=== PATIENT | male | born 1980 ===

== ENCOUNTER → 2020-08-13 10:58 | Outpatient (BNVA) | payer OTHER, SELFPAY | PROVIDERS: PCP Internal Medicine; Visit Provider Nurse Practitioner Gerontology | DX: E10.42 Type 1 diabetes mellitus with diabetic polyneuropathy (principal); E10.65 Type 1 diabetes mellitus with hyperglycemia; I10 Essential (primary) hypertension | CPT/HCPCS: 82947; 99212 ==

== ENCOUNTER 2021-06-11 08:37 | Outpatient (REF) | payer OTHER, SELFPAY ==
--- NOTE | ~2021-06-11 | XR_ITS ---
EXAMINATION: XR FOOT, RIGHT CLINICAL INFORMATION: Pain in right toe COMPARISON: None TECHNIQUE: AP, lateral, and oblique views of the right foot. FINDINGS: The bones and soft tissues are normal. No fracture. Alignment is anatomic. Joint spaces are maintained. XR/XR foot RT min 3V IMPRESSION: Normal right foot.
== END 2021-06-11 08:38 | disposition home or self-care (01) ==
LOC: HO.XRAY 08:37
PROVIDERS: PCP Internal Medicine; Visit Provider Emergency Medicine
DX: M79.674 Pain in right toe(s) (principal)
CPT/HCPCS: 73630

== ENCOUNTER 2021-10-10 15:48 | Outpatient (REF) | payer OTHER, SELFPAY ==
--- NOTE | ~2021-10-10 | US_ITS ---
EXAMINATION: US THYROID CLINICAL INFORMATION: Nontoxic single thyroid nodule. COMPARISON: None. TECHNIQUE: Linear transducer grayscale and color Doppler examination with attention to the region of the thyroid. FINDINGS: SIZE: Measurements of the thyroid lobes and nodules are given in sagittal, anteroposterior and transverse dimensions respectively. Right Thyroid Lobe: 6.0 x 1.9 x 1.9 cm, volume 11.0 mL. Parenchyma: The gland echotexture is homogeneous. Thyroid vascularity is normal. Left Thyroid Lobe: 5.2 x 1.7 x 2.1 cm, volume 9.7 mL. Parenchyma: The gland echotexture is homogeneous. Thyroid vascularity is normal. Isthmus: 0.4 cm in maximum AP dimension. Estimated total number of nodules greater than or equal to 1 cm: 1. 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 Location: Left isthmus. Size: 1.4 x 0.7 x 1.6 cm, volume 0.9 mL. Nodule characteristics: Composition: Mixed cystic and solid (1). Echogenicity: Isoechoic (1). Shape: Taller than wide (3). Margins: Smooth (0). Echogenic Foci: None (0). ACR TI-RADS total points: 5 ACR TI-RADS category: 4 2. Location: Right mid. Size: 0.7 x 0.5 x 0.7 cm, volume 0.1 mL. Nodule characteristics: Composition: Solid (2). Echogenicity: Isoechoic (1). Shape: Not taller than wide (0). Margins: Smooth (0). Echogenic Foci: None (0). ACR TI-RADS total points: 3 ACR TI-RADS category: 3 NODES: No lymphadenopathy is seen in the tissue surrounding the thyroid gland. US/US thyroid IMPRESSION: Slightly enlarged left thyroid lobe but homogeneous. There are 2 nodules The left isthmus nodule is borderline by TI-RADS evaluation. Recommend one-year follow-up. The second nodule is subcentimeter and nonsuspicious. ACR TI-RADS RECOMMENDATION REFERENCE: Ultrasound-guided fine-needle aspiration, followup ultrasound, no further follow up. * TR1 (0 point) and TR 2 (2 points): No FNA or follow up * TR3 (3 points): FNA if more than or equal to 2.5 cm in maximum dimension, followup ultrasound in 1, 3 and 5 years if 1.5 to 2.4 cm in maximum dimension. * TR4 (4-6 points): FNA if more than or equal to 1.5 cm in maximum dimension, followup ultrasound in 1, 2, 3 and 5 years if 1 to 1.4 cm in maximum dimension. * TR5 (more than or equal to 7 points): FNA if more than or equal to 1 cm in maximum dimension, followup ultrasound every year for 5 years if 0.5 to 0.9 cm in maximum dimension. * TR3, TR4 or TR5 nodules that are below the size threshold for follow up receive no follow up.
== END 2021-10-10 15:49 | disposition home or self-care (01) ==
LOC: HO.US 15:48
PROVIDERS: Visit Provider Internal Medicine
DX: E04.1 Nontoxic single thyroid nodule (principal)
CPT/HCPCS: 76536

== ENCOUNTER 2022-06-02 11:21 | Emergency (ER) | payer OTHER, SELFPAY ==
--- NOTE | ~2022-06-02 | XR_ITS ---
EXAMINATION: XR CHEST CLINICAL INFORMATION: Chest pain and shortness of breath. COMPARISON: Chest x-ray 03/28/2019 TECHNIQUE: 2 views of the chest were obtained. FINDINGS: Cardiac silhouette is normal in size. The lungs are well aerated. There is no lobar consolidation. No pleural effusion or pneumothorax. No acute osseous abnormality. XR/XR chest 2V IMPRESSION: No acute pulmonary pathology.
[2022-06-02 11:55] VITALS: BP 143/91; PULSE 80; RESP 18; TEMP 36.6; O2SAT 98; BMI 29.8
--- NOTE | 2022-06-02 11:55 | ED.URI ---
HPI - URI/Sore Throat General Chief Complaint: Nausea/Vomiting/Diarrhea <Donna Saunders CNP - Last Filed: 06/02/22 11:58> Stated Complaint: Cough/Back pain/Chest pain <Donna Saunders CNP - Last Filed: 06/02/22 11:58> Time Seen by Provider: 06/02/22 14:04 <Donna Saunders CNP - Last Filed: 06/02/22 11:58> History of Present Illness HPI Narrative: Patient complains of body aches headache cough times 2-3 days, developed nausea vomiting and diarrhea yesterday, as he is vomiting he did not take his insulin this morning, he also has a cough but no chest pain no shortness of breath no abdominal pain <DANIELLE Hernandez - Last Filed: 06/05/22 11:06> Related Data Home Medications: Home Medications Medication Instructions Recorded Confirmed blood-glucose meter #1 ea 08/13/20 08/13/20 insulin glargine 100 unit/mL (3 24 unit subcut BEDTIME 08/13/20 08/13/20 mL) subcutaneous pen lisinopril 5 mg tablet 5 mg PO DAILY 08/13/20 08/13/20 Previous Rx's Medication Instructions Recorded blood sugar diagnostic (FreeStyle #150 ea 08/13/20 Lite Strips) insulin lispro 100 unit/mL 10 unit (0.1 mL) subcut TID #15 mL 10/29/20 subcutaneous pen (Humalog KwikPen (U-100) Insulin) acetaminophen 325 mg capsule 975 mg PO TID PRN fever or pain 06/02/22 #30 caps ondansetron 4 mg disintegrating 4 mg PO Q6H PRN nausea and 06/02/22 tablet vomiting #10 tabs oseltamivir 75 mg capsule (Tamiflu) 75 mg PO Q12H 5 days #10 caps 06/02/22 <Donna Saunders CNP - Last Filed: 06/02/22 11:58> Allergies/Adverse Reactions: Allergies Allergy/AdvReac Type Severity Reaction Status Date / Time No Known Allergies Allergy Unverified 08/13/20 11:44 [No Known Allergies*] <Donna Saunders CNP - Last Filed: 06/02/22 11:58> Review of Systems Review of Systems: Positive for fever body aches fatigue cough nausea vomiting and headache Negatives are no dizziness no weakness no fainting no feeling faint no stiff neck no difficulty breathing or swallowing no sore throat no chest pain no shortness of breath no abdominal pain no diarrhea no dysuria no skin rash <DANIELLE Hernandez - Last Filed: 06/05/22 11:06> Yes all other systems are reviewed and are negative <DANIELLE Hernandez - Last Filed: 06/05/22 11:06> [facility] Past Medical History Source: nursing notes reviewed <DANIELLE Hernandez - Last Filed: 06/05/22 11:06> Medical History: Medical History (Updated 06/03/22 @ 00:02 by Noemi Colin) Diabetes mellitus type 1, uncontrolled Essential hypertension Type 1 diabetes mellitus with diabetic polyneuropathy <Donna Saunders CNP - Last Filed: 06/02/22 11:58> Surgical History: Surgical History History of ear surgery <Donna Saunders CNP - Last Filed: 06/02/22 11:58> Family History Family History: Family History Father Diabetes Mother No problems noted. <Donna Saunders CNP - Last Filed: 06/02/22 11:58> Social History Social History: Social History (Updated 08/13/20 @ 11:30 by Kimberly Astorga [facility]) Household Members: Significant Other Advance Directives: No Advance Directives Information Provided: Yes <Donna Saunders CNP - Last Filed: 06/02/22 11:58> Physical Exam Vital Signs: Vital Signs: Last Vital Signs Temp 97.9 F 06/02/22 11:55 Pulse 80 06/02/22 11:55 Resp 18 06/02/22 11:55 BP 143/91 H 06/02/22 11:55 Pulse Ox 98 06/02/22 11:55 O2 Del Method 06/02/22 11:55 BMI result Body Mass Index 29.8 <Donna Saunders CNP - Last Filed: 06/02/22 11:58> Vital Signs: Last Vital Signs Temp 97.9 F 06/02/22 11:55 Pulse 80 06/02/22 11:55 Resp 18 06/02/22 11:55 BP 143/91 H 06/02/22 11:55 Pulse Ox 98 06/02/22 11:55 O2 Del Method 06/02/22 11:55 BMI result Body Mass Index 29.8 <DANIELLE Hernandez - Last Filed: 06/05/22 11:06> General appearance is no acute distress The eyes anicteric no pallor no redness no discharge The sinuses nontender The pharynx is clear with no redness swelling or exudate, lips are cracked and mucous membranes are dry Neck is supple Chest clear to auscultation full symmetric equal breath sounds Heart no murmur The abdomen soft nontender The extremities full range of motion x4 Skin no rash <DANIELLE Hernandez - Last Filed: 06/05/22 11:06> Course Course Course Narrative: RME: Patient is a 41-year-old male with a Past medical history of diabetes, hypertension who presents emergency department for evaluation of ill symptoms. He states that he has inability to tolerate oral fluids or solids, experiencing Nausea, vomiting, diarrhea, chills, tactile fever, cough, shortness of breath, chest pain. Symptom onset 2 days ago. Significant other is ill with similar symptoms and upper respiratory symptoms. Suspect likely viral infection however will evaluate for ACS/pneumonia given pmhx as risk factors. Plan: POC glucose, labs, EKG, viral testing <Donna Saunders CNP - Last Filed: 06/02/22 11:58> RME: Patient is a 41-year-old male with a Past medical history of diabetes, hypertension who presents emergency department for evaluation of ill symptoms. He states that he has inability to tolerate oral fluids or solids, experiencing Nausea, vomiting, diarrhea, chills, tactile fever, cough, shortness of breath, chest pain. Symptom onset 2 days ago. Significant other is ill with similar symptoms and upper respiratory symptoms. Suspect likely viral infection however will evaluate for ACS/pneumonia given pmhx as risk factors. Plan: POC glucose, labs, EKG, viral testing Patient was hydrated and given nausea medicine and felt much better and was tolerating p.o. and feeling very improved Chest x-ray was negative EKG ordered from triage was a normal sinus rhythm with no acute ischemic changes no acute ST changes Labs showed a glucose of 434, BUN 20, creatinine 1.5, bilirubin 3.5 Anion gap was 17 and bicarb was 25, it is likely that the small bump in creatinine and BUN are due to dehydration and he is advised that in 2 weeks he should follow with his doctor to recheck his bilirubin and renal function The patient had not taken his insulin and is very familiar with his insulin regimen and is going to eat something and go home and apply his normal insulin regime Well-appearing very improve patient is discharged <DANIELLE Hernandez - Last Filed: 06/05/22 11:06> Medications Administered Discontinued Medications Generic Name Dose Route Start Last Admin Trade Name Freq PRN Reason Stop Dose Admin Sodium Chloride 1,000 mls @ 999 mls/hr 06/02/22 14:45 06/02/22 15:12 Ns IVCONT 06/02/22 15:45 999 mls/hr .Q1H1M JOSUÉ Administration Ondansetron HCl 4 mg 06/02/22 14:32 06/02/22 15:13 Ondansetron Hcl 4 Mg/2 Ml Vial IVPUSH 06/02/22 14:33 4 mg ONCE ONE Administration <Donna Saunders CNP - Last Filed: 06/02/22 11:58> Medications Administered Discontinued Medications Generic Name Dose Route Start Last Admin Trade Name Freq PRN Reason Stop Dose Admin Sodium Chloride 1,000 mls @ 999 mls/hr 06/02/22 14:45 06/02/22 15:12 Ns IVCONT 06/02/22 15:45 999 mls/hr .Q1H1M JOSUÉ Administration Ondansetron HCl 4 mg 06/02/22 14:32 06/02/22 15:13 Ondansetron Hcl 4 Mg/2 Ml Vial IVPUSH 06/02/22 14:33 4 mg ONCE ONE Administration <DANIELLE Hernandez - Last Filed: 06/05/22 11:06> Medical Decision Making Lab Data MDM Lab Attestation statement: I reviewed the patient's lab results. <DANIELLE Hernandez - Last Filed: 06/05/22 11:06> Result Diagrams: : 06/02/22 12:32 06/02/22 12:32 <Donna Saunders CNP - Last Filed: 06/02/22 11:58> Labs: Lab Results 06/02/22 06/02/22 06/02/22 Range/Units 12:00 12:32 12:32 WBC 4.7 L (4.8-10.8) X10*3/uL RBC 5.16 (4.60-5.80) X10*6/uL Hgb 15.9 (14.0-18.0) g/dl Hct 47.1 (42.0-52.0) % MCV 91.3 (80.0-98.0) fL MCH 30.8 (27.0-33.0) pg MCHC 33.8 (31.0-36.0) g/dl RDW 12.5 (11.0-16.0) % Plt Count 278 (160-400) X10*3/uL MPV 8.5 L (9.4-12.4) fL Immature Gran % (Auto) 0.2 (0.0-0.4) % Neut % (Auto) 65.3 (45-73) % Lymph % (Auto) 20.6 (20-40) % [place] % (Auto) 13.1 H (2-11) % Eos % (Auto) 0.2 (0-4) % Baso % (Auto) 0.6 (0-2) % Lymph # (Auto) 1.0 L (1.2-4.9) X10*3/uL [place] # (Auto) 0.6 (0.1-1.2) X10*3/uL Eos # (Auto) 0.0 (0.0-0.4) X10*3/uL Baso # (Auto) 0.0 (0.0-0.2) X10*3/uL Abs Immat Gran (auto) 0.01 (0.00-0.03) X10*3/uL Absolute Neuts (auto) 3.1 (2.0-8.3) x10*3/uL Absolute Nucleated RBC 0.000 (0.0-0.012) X10*3/uL Nucleated RBC % (auto) 0.0 (0.0-0.2) /100WBC Sodium 135 (135-145) mmol/L Potassium 4.6 (3.3-5.1) mmol/L Chloride 98 (96-108) mmol/L Carbon Dioxide 25 (22-29) mmol/L Anion Gap 17 (12-20) BUN 20 H (9-16) mg/dL Creatinine 1.50 H (0.5-1.4) mg/dL Estim Creat Clear Calc 77.6 Estimated GFR 51 POC Glucose 402 H* (60-115) mg/dL Random Glucose 434 H* (60-115) mg/dL Calcium 9.2 (8.4-10.2) mg/dL Total Bilirubin 3.5 H (0.0-1.0) mg/dL AST 23 (5-37) U/L ALT 27 (0-40) U/L Alkaline Phosphatase 97 (39-117) U/L Troponin I High Sens (<3.5-35.0) ng/L Total Protein 6.8 (6.5-8.0) g/dL Albumin 4.3 (3.5-5.0) g/dL Lipase 17 (8-78) U/L Acetone, Qual (Negative) COVID-19 (CHRISTINE) (Negative) COVID-19 Clin Com Influenza Type A (JIN) (Negative) Influenza Type B (JIN) (Negative) Influenza A & B Note 06/02/22 06/02/22 06/02/22 Range/Units 12:32 12:32 12:32 WBC (4.8-10.8) X10*3/uL RBC (4.60-5.80) X10*6/uL Hgb (14.0-18.0) g/dl Hct (42.0-52.0) % MCV (80.0-98.0) fL MCH (27.0-33.0) pg MCHC (31.0-36.0) g/dl RDW (11.0-16.0) % Plt Count (160-400) X10*3/uL MPV (9.4-12.4) fL Immature Gran % (Auto) (0.0-0.4) % Neut % (Auto) (45-73) % Lymph % (Auto) (20-40) % [place] % (Auto) (2-11) % Eos % (Auto) (0-4) % Baso % (Auto) (0-2) % Lymph # (Auto) (1.2-4.9) X10*3/uL [place] # (Auto) (0.1-1.2) X10*3/uL Eos # (Auto) (0.0-0.4) X10*3/uL Baso # (Auto) (0.0-0.2) X10*3/uL Abs Immat Gran (auto) (0.00-0.03) X10*3/uL Absolute Neuts (auto) (2.0-8.3) x10*3/uL Absolute Nucleated RBC (0.0-0.012) X10*3/uL Nucleated RBC % (auto) (0.0-0.2) /100WBC Sodium (135-145) mmol/L Potassium (3.3-5.1) mmol/L Chloride (96-108) mmol/L Carbon Dioxide (22-29) mmol/L Anion Gap (12-20) BUN (9-16) mg/dL Creatinine (0.5-1.4) mg/dL Estim Creat Clear Calc Estimated GFR POC Glucose (60-115) mg/dL Random Glucose (60-115) mg/dL Calcium (8.4-10.2) mg/dL Total Bilirubin (0.0-1.0) mg/dL AST (5-37) U/L ALT (0-40) U/L Alkaline Phosphatase (39-117) U/L Troponin I High Sens 3.4 (<3.5-35.0) ng/L Total Protein (6.5-8.0) g/dL Albumin (3.5-5.0) g/dL Lipase (8-78) U/L Acetone, Qual (Negative) COVID-19 (CHRISTINE) Negative (Negative) COVID-19 Clin Com See Note Influenza Type A (JIN) Positive A (Negative) Influenza Type B (JIN) Negative (Negative) Influenza A & B Note See Note 06/02/22 Range/Units 12:32 WBC (4.8-10.8) X10*3/uL RBC (4.60-5.80) X10*6/uL Hgb (14.0-18.0) g/dl Hct (42.0-52.0) % MCV (80.0-98.0) fL MCH (27.0-33.0) pg MCHC (31.0-36.0) g/dl RDW (11.0-16.0) % Plt Count (160-400) X10*3/uL MPV (9.4-12.4) fL Immature Gran % (Auto) (0.0-0.4) % Neut % (Auto) (45-73) % Lymph % (Auto) (20-40) % [place] % (Auto) (2-11) % Eos % (Auto) (0-4) % Baso % (Auto) (0-2) % Lymph # (Auto) (1.2-4.9) X10*3/uL [place] # (Auto) (0.1-1.2) X10*3/uL Eos # (Auto) (0.0-0.4) X10*3/uL Baso # (Auto) (0.0-0.2) X10*3/uL Abs Immat Gran (auto) (0.00-0.03) X10*3/uL Absolute Neuts (auto) (2.0-8.3) x10*3/uL Absolute Nucleated RBC (0.0-0.012) X10*3/uL Nucleated RBC % (auto) (0.0-0.2) /100WBC Sodium (135-145) mmol/L Potassium (3.3-5.1) mmol/L Chloride (96-108) mmol/L Carbon Dioxide (22-29) mmol/L Anion Gap (12-20) BUN (9-16) mg/dL Creatinine (0.5-1.4) mg/dL Estim Creat Clear Calc Estimated GFR POC Glucose (60-115) mg/dL Random Glucose (60-115) mg/dL Calcium (8.4-10.2) mg/dL Total Bilirubin (0.0-1.0) mg/dL AST (5-37) U/L ALT (0-40) U/L Alkaline Phosphatase (39-117) U/L Troponin I High Sens (<3.5-35.0) ng/L Total Protein (6.5-8.0) g/dL Albumin (3.5-5.0) g/dL Lipase (8-78) U/L Acetone, Qual Small H (Negative) COVID-19 (CHRISTINE) (Negative) COVID-19 Clin Com Influenza Type A (JIN) (Negative) Influenza Type B (JIN) (Negative) Influenza A & B Note <Donna Saunders, PLANT [employer]ER - Last Filed: 06/02/22 11:58> Lab Results 06/02/22 06/02/22 06/02/22 Range/Units 12:00 12:32 12:32 WBC 4.7 L (4.8-10.8) X10*3/uL RBC 5.16 (4.60-5.80) X10*6/uL Hgb 15.9 (14.0-18.0) g/dl Hct 47.1 (42.0-52.0) % MCV 91.3 (80.0-98.0) fL MCH 30.8 (27.0-33.0) pg MCHC 33.8 (31.0-36.0) g/dl RDW 12.5 (11.0-16.0) % Plt Count 278 (160-400) X10*3/uL MPV 8.5 L (9.4-12.4) fL Immature Gran % (Auto) 0.2 (0.0-0.4) % Neut % (Auto) 65.3 (45-73) % Lymph % (Auto) 20.6 (20-40) % [place] % (Auto) 13.1 H (2-11) % Eos % (Auto) 0.2 (0-4) % Baso % (Auto) 0.6 (0-2) % Lymph # (Auto) 1.0 L (1.2-4.9) X10*3/uL [place] # (Auto) 0.6 (0.1-1.2) X10*3/uL Eos # (Auto) 0.0 (0.0-0.4) X10*3/uL Baso # (Auto) 0.0 (0.0-0.2) X10*3/uL Abs Immat Gran (auto) 0.01 (0.00-0.03) X10*3/uL Absolute Neuts (auto) 3.1 (2.0-8.3) x10*3/uL Absolute Nucleated RBC 0.000 (0.0-0.012) X10*3/uL Nucleated RBC % (auto) 0.0 (0.0-0.2) /100WBC Sodium 135 (135-145) mmol/L Potassium 4.6 (3.3-5.1) mmol/L Chloride 98 (96-108) mmol/L Carbon Dioxide 25 (22-29) mmol/L Anion Gap 17 (12-20) BUN 20 H (9-16) mg/dL Creatinine 1.50 H (0.5-1.4) mg/dL Estim Creat Clear Calc 77.6 Estimated GFR 51 POC Glucose 402 H* (60-115) mg/dL Random Glucose 434 H* (60-115) mg/dL Calcium 9.2 (8.4-10.2) mg/dL Total Bilirubin 3.5 H (0.0-1.0) mg/dL AST 23 (5-37) U/L ALT 27 (0-40) U/L Alkaline Phosphatase 97 (39-117) U/L Troponin I High Sens (<3.5-35.0) ng/L Total Protein 6.8 (6.5-8.0) g/dL Albumin 4.3 (3.5-5.0) g/dL Lipase 17 (8-78) U/L Acetone, Qual (Negative) COVID-19 (CHRISTINE) (Negative) COVID-19 Clin Com Influenza Type A (JIN) (Negative) Influenza Type B (JIN) (Negative) Influenza A & B Note 06/02/22 06/02/22 06/02/22 Range/Units 12:32 12:32 12:32 WBC (4.8-10.8) X10*3/uL RBC (4.60-5.80) X10*6/uL Hgb (14.0-18.0) g/dl Hct (42.0-52.0) % MCV (80.0-98.0) fL MCH (27.0-33.0) pg MCHC (31.0-36.0) g/dl RDW (11.0-16.0) % Plt Count (160-400) X10*3/uL MPV (9.4-12.4) fL Immature Gran % (Auto) (0.0-0.4) % Neut % (Auto) (45-73) % Lymph % (Auto) (20-40) % [place] % (Auto) (2-11) % Eos % (Auto) (0-4) % Baso % (Auto) (0-2) % Lymph # (Auto) (1.2-4.9) X10*3/uL [place] # (Auto) (0.1-1.2) X10*3/uL Eos # (Auto) (0.0-0.4) X10*3/uL Baso # (Auto) (0.0-0.2) X10*3/uL Abs Immat Gran (auto) (0.00-0.03) X10*3/uL Absolute Neuts (auto) (2.0-8.3) x10*3/uL Absolute Nucleated RBC (0.0-0.012) X10*3/uL Nucleated RBC % (auto) (0.0-0.2) /100WBC Sodium (135-145) mmol/L Potassium (3.3-5.1) mmol/L Chloride (96-108) mmol/L Carbon Dioxide (22-29) mmol/L Anion Gap (12-20) BUN (9-16) mg/dL Creatinine (0.5-1.4) mg/dL Estim Creat Clear Calc Estimated GFR POC Glucose (60-115) mg/dL Random Glucose (60-115) mg/dL Calcium (8.4-10.2) mg/dL Total Bilirubin (0.0-1.0) mg/dL AST (5-37) U/L ALT (0-40) U/L Alkaline Phosphatase (39-117) U/L Troponin I High Sens 3.4 (<3.5-35.0) ng/L Total Protein (6.5-8.0) g/dL Albumin (3.5-5.0) g/dL Lipase (8-78) U/L Acetone, Qual (Negative) COVID-19 (CHRISTINE) Negative (Negative) COVID-19 Clin Com See Note Influenza Type A (JIN) Positive A (Negative) Influenza Type B (JIN) Negative (Negative) Influenza A & B Note See Note 06/02/22 Range/Units 12:32 WBC (4.8-10.8) X10*3/uL RBC (4.60-5.80) X10*6/uL Hgb (14.0-18.0) g/dl Hct (42.0-52.0) % MCV (80.0-98.0) fL MCH (27.0-33.0) pg MCHC (31.0-36.0) g/dl RDW (11.0-16.0) % Plt Count (160-400) X10*3/uL MPV (9.4-12.4) fL Immature Gran % (Auto) (0.0-0.4) % Neut % (Auto) (45-73) % Lymph % (Auto) (20-40) % [place] % (Auto) (2-11) % Eos % (Auto) (0-4) % Baso % (Auto) (0-2) % Lymph # (Auto) (1.2-4.9) X10*3/uL [place] # (Auto) (0.1-1.2) X10*3/uL Eos # (Auto) (0.0-0.4) X10*3/uL Baso # (Auto) (0.0-0.2) X10*3/uL Abs Immat Gran (auto) (0.00-0.03) X10*3/uL Absolute Neuts (auto) (2.0-8.3) x10*3/uL Absolute Nucleated RBC (0.0-0.012) X10*3/uL Nucleated RBC % (auto) (0.0-0.2) /100WBC Sodium (135-145) mmol/L Potassium (3.3-5.1) mmol/L Chloride (96-108) mmol/L Carbon Dioxide (22-29) mmol/L Anion Gap (12-20) BUN (9-16) mg/dL Creatinine (0.5-1.4) mg/dL Estim Creat Clear Calc Estimated GFR POC Glucose (60-115) mg/dL Random Glucose (60-115) mg/dL Calcium (8.4-10.2) mg/dL Total Bilirubin (0.0-1.0) mg/dL AST (5-37) U/L ALT (0-40) U/L Alkaline Phosphatase (39-117) U/L Troponin I High Sens (<3.5-35.0) ng/L Total Protein (6.5-8.0) g/dL Albumin (3.5-5.0) g/dL Lipase (8-78) U/L Acetone, Qual Small H (Negative) COVID-19 (CHRISTINE) (Negative) COVID-19 Clin Com Influenza Type A (JIN) (Negative) Influenza Type B (JIN) (Negative) Influenza A & B Note <DANIELLE Hernandez - Last Filed: 06/05/22 11:06> Discharge Plan Discharge Clinical Impression: Influenza <Donna Saunders CNP - Last Filed: 06/02/22 11:58> Patient Disposition: Home, Self-Care <Donna Saunders CNP - Last Filed: 06/02/22 11:58> Additional Instructions: Testing today showed you had the flu Labs showed mild dehydration with creatinine of 1.5 In a week or 2 it is a good idea to check with your doctor and get the kidney function re checked, as well as albumin which was elevated We gave a L of fluid and nausea medicine which improved you We are giving a prescription for Tamiflu for the flu This medication relieves symptoms somewhat but does not cure the flu, so if it causes any side effects or stomach upset you do not have to take Return to the ER any time for difficulty breathing, dehydration any worse condition or any concerns Resume your normal diabetes management when you go home, make sure you eat some food <Donna Saunders CNP - Last Filed: 06/02/22 11:58> Prescriptions: New ondansetron 4 mg tablet,disintegrating 4 mg PO Q6H PRN (Reason: nausea and vomiting) Qty: 10 0RF oseltamivir [Tamiflu] 75 mg capsule 75 mg PO Q12H 5 Days Qty: 10 0RF acetaminophen 325 mg capsule 975 mg PO TID PRN (Reason: fever or pain) Qty: 30 0RF No Action insulin lispro [Humalog KwikPen Insulin] 100 unit/mL insulin pen 10 unit subcut TID Qty: 15 1RF Lantus Solostar U-100 Insulin 100 unit/mL (3 mL) insulin pen 24 unit subcut BEDTIME lisinopril 5 mg tablet 5 mg PO DAILY (DME) blood-glucose meter Kit See Rx Instructions Not Applicable BID Qty: 1 Rx Instructions: As directed (DME) FreeStyle Lite Strips Strip See Rx Instructions .ROUTE .MEDSUPPLY Qty: 150 11RF Rx Instructions: As directed five times a day <Donna Saunders CNP - Last Filed: 06/02/22 11:58> Stand Alone Forms: Work/School Release <Donna Saunders CNP - Last Filed: 06/02/22 11:58> Interventions: ED Discharge Assessment Last Done: 06/02/22 17:41 <Donna Saunders CNP - Last Filed: 06/02/22 11:58> Discharge Date/Time: 06/02/22 17:41 <Donna Saunders CNP - Last Filed: 06/02/22 11:58>
--- NOTE | 2022-06-02 11:57 | ECG_ITS ---
Test Reason : cp Blood Pressure : / mmHG Vent. Rate : 089 BPM Atrial Rate : 089 BPM P-R Int : 138 ms QRS Dur : 086 ms QT Int : 350 ms P-R-T Axes : 066 080 033 degrees QTc Int : 425 ms Normal sinus rhythm Normal ECG When compared with ECG of 28-MAR-2019 10:25, No significant change was found Referred By: Donna Saunders Electronically Signed By:Jl Finley
[2022-06-02 12:40] LABS: Basophils Percent Auto 0.6 % (0-2); Eosinophils Percent Auto 0.2 % (0-4); Hematocrit 47.1 % (42.0-52.0); Hemoglobin 15.9 g/dl (14.0-18.0); Imm Gran Abs Auto 0.01 X10*3/uL (0.00-0.03); Imm Gran Pct Auto 0.2 % (0.0-0.4); Lymphocytes Percent Auto 20.6 % (20-40); MANUAL DIFF FLAG NO; Mean Corpuscular HGB Conc 33.8 g/dl (31.0-36.0); Mean Corpuscular Hemoglobin 30.8 pg (27.0-33.0); Mean Corpuscular Volume 91.3 fL (80.0-98.0); Mean Platelet Volume 8.5 fL (9.4-12.4); Monocytes Absolute Auto 0.6 X10*3/uL (0.1-1.2); Monocytes Percent Auto 13.1 % (2-11); Neutrophils Absolute Auto 3.1 x10*3/uL (2.0-8.3); Neutrophils Percent Auto 65.3 % (45-73); Platelet Count 278 X10*3/uL (160-400); Red Blood Count 5.16 X10*6/uL (4.60-5.80); Red Cell Distribution Width 12.5 % (11.0-16.0); White Blood Count 4.7 X10*3/uL (4.8-10.8)
[2022-06-02 12:57] LABS: COVID-19 Test Negative (Negative); IDNOW Serial# 9DB6401D
[2022-06-02 13:00] LABS: Acetone, serum QL Small (Negative)
[2022-06-02 13:02] LABS: Alanine Aminotransferase 27 U/L (0-40); Albumin Level 4.3 g/dL (3.5-5.0); Alkaline Phosphatase 97 U/L (39-117); Anion Gap 17 (12-20); Aspartate Amino Transferase 23 U/L (5-37); Blood Urea Nitrogen 20 mg/dL (9-16); Calcium 9.2 mg/dL (8.4-10.2); Carbon Dioxide 25 mmol/L (22-29); Chloride 98 mmol/L (96-108); Creatinine Clr Calc Pharmacy 77.6; Estimated Glomerular Filt Rate 51; Glucose Random 434 mg/dL (60-115); Lipase 17 U/L (8-78); Potassium 4.6 mmol/L (3.3-5.1); Sodium 135 mmol/L (135-145); Total Protein 6.8 g/dL (6.5-8.0)
[2022-06-02 13:12] LABS: IDNOW Serial# BCCEAD1C; Influenza A Positive (Negative); Influenza B2 Negative (Negative)
[2022-06-02 13:23] LABS: Bilirubin Total 3.5 mg/dL (0.0-1.0)
[2022-06-02 13:57] LABS: Troponin-I High Sensitivity 3.4 ng/L (<3.5-35.0)
[2022-06-02] MEDS: 0.9 % Sodium Chloride 1,000 ML 999 ML IVCONT (15:12)
[2022-06-02] MEDS: ondansetron HCL 4 MG/2 ML VIAL IVPUSH (15:13)
[2022-06-03 07:57] LABS: Glucose, Whole Blood 402 mg/dL (60-115)
== END 2022-06-02 17:41 | disposition home or self-care (01) ==
PROVIDERS: Nurse Practitioner Family; Emergency Provider Emergency Medicine Emergency Medical Services; PCP Internal Medicine
DX: J11.1 Influenza due to unidentified influenza virus with other respiratory manifestations (principal); Z20.822 Contact with and (suspected) exposure to COVID-19; E10.9 Type 1 diabetes mellitus without complications; I10 Essential (primary) hypertension; Z79.4 Long term (current) use of insulin
CPT/HCPCS: 36415; 71046; 80053; 82009; 82947; 83690; 84484; 85025; 87502; 87635; 93005; 96374; 99283; 99284; J2405

== ENCOUNTER 2022-09-15 07:23 | Emergency (ER) | payer OTHER, SELFPAY ==
[2022-09-15 07:34] VITALS: BP 148/81; PULSE 83; RESP 20; TEMP 36.7; O2SAT 99; BMI 29.5
--- NOTE | 2022-09-15 07:46 | PC.NURSE ---
pt arrived to ED ambulatory, complaints of N/V/D x1 day. Denies pain unless going to the bathroom. Pt reports he is a diabetic, POC ordered, reported he has not taken insulin since yesterday. No PO tolerance since yesterday.
--- NOTE | 2022-09-15 07:47 | MHC.EDTECH ---
POC 443 RN Khushbu aware
[2022-09-15 07:52] LABS: Glucose, Whole Blood 443 mg/dL (60-115)
--- NOTE | 2022-09-15 08:10 | ED.GENADULT ---
HPI - General Adult General Chief complaint: Abdominal Pain Stated complaint: HBS/Vomiting/Abd pain Time Seen by Provider: 09/15/22 08:10 Source: patient Mode of arrival: ambulatory Limitations: no limitations History of Present Illness HPI narrative: Patient is a 42 year old assigned male at with a history of type 1 diabetes presenting to the emergency department today with nausea and vomiting. Patient states that he was feeling fine and his sugars were fine and then he began to have nausea and vomiting. Patient states that since the nausea and vomiting started, his sugars have been harder to control. Patient denies any dizziness, lightheadedness, abdominal pain, fever, chills, blurry vision, double vision, loss of vision, chest pain, difficulty breathing, shortness of breath, back pain, night sweats, pain with urination, increased urinary frequency, increased urinary urgency, blood in his urine or stool, syncope or a near syncopal episode, recent trauma or falls, bowel incontinence, bladder incontinence, bowel retention, bladder retention, or any other complaints at this time. Onset (ago): day(s) Severity: mild Severity scale (1-10): 2 Relieving factors: none Exacerbating factors: none Associated symptoms: nausea/vomiting Treatments prior to arrival: none Related Data Home Medications Medication Instructions Recorded Confirmed blood-glucose meter #1 ea 08/13/20 08/13/20 insulin glargine 100 unit/mL (3 24 unit subcut BEDTIME 08/13/20 08/13/20 mL) subcutaneous pen lisinopril 5 mg tablet 5 mg PO DAILY 08/13/20 08/13/20 Previous Rx's Medication Instructions Recorded blood sugar diagnostic (FreeStyle #150 ea 08/13/20 Lite Strips) insulin lispro 100 unit/mL 10 unit (0.1 mL) subcut TID #15 mL 10/29/20 subcutaneous pen (Humalog KwikPen (U-100) Insulin) acetaminophen 325 mg capsule 975 mg PO TID PRN fever or pain 06/02/22 #30 caps ondansetron 4 mg disintegrating 4 mg PO Q6H PRN nausea and 06/02/22 tablet vomiting #10 tabs oseltamivir 75 mg capsule (Tamiflu) 75 mg PO Q12H 5 days #10 caps 06/02/22 ondansetron 4 mg disintegrating 4 mg PO Q8H 3 days #9 tabs 09/15/22 tablet Allergies Allergy/AdvReac Type Severity Reaction Status Date / Time No Known Allergies Allergy Verified 09/15/22 07:38 [No Known Allergies*] Review of Systems Constitutional: Constitutional: Reports no additional constitutional complaints, Denies chills, Denies fever(s) and Denies night sweats Eyes: Eyes: Reports no additional eye complaints, Denies blurry vision, Denies change in vision, Denies diplopia, Denies eye discharge, Denies loss of vision and Denies eye pain ENT: Denies dizziness Cardiovascular: Cardiovascular: Reports no additional cardiovascular complaints, Denies chest pain, Denies lightheadedness, Denies Loss of Consciousness and Denies dyspnea Respiratory: Respiratory: Reports no additional respiratory complaints and Denies dyspnea Gastrointestinal: Gastrointestinal: Reports no additional gastrointestinal complaints, Denies abdominal pain, Denies melena, Denies hematochezia, Denies change in bowel habits, Denies change in stool character, Reports nausea and Reports vomiting Genitourinary: Genitourinary: Reports no additional male genitourinary complaints, Denies hematuria, Denies oliguria, Denies difficulty urinating, Denies dysuria, Denies urinary frequency, Denies urinary hesitancy, Denies urinary incontinence and Denies urinary urgency Musculoskeletal: Musculoskeletal: Reports no additional musculoskeletal complaints, Denies numbness and Denies tingling Neurologic: Denies dizziness, Denies loss of vision, Denies numbness and Denies tingling Psychiatric: Psychiatric: Reports no additional psychiatric complaints Endocrine: Endocrine: Reports no additional endocrine complaints Hematologic/Lymphatic: Hematologic/Lymphatic: Reports no additional hematologic/lymphatic complaints Allergic/Immunologic: Allergic/Immunologic: Reports no additional allergic/immunologic complaints [facility] Past Medical History Attestation statement: The following information was validated with the patient. Source: old records reviewed and nursing notes reviewed Medical History Diabetes mellitus type 1, uncontrolled Essential hypertension Type 1 diabetes mellitus with diabetic polyneuropathy Surgical History History of ear surgery Family History Family History Father Diabetes Mother No problems noted. Social History Social History Household Members: Significant Other Alcohol intake: never Smoked in Last 30 Days: No Use of substances other than those prescribed or required for medical reasons: No Advance Directives: No Advance Directives Information Provided: Yes Physical Exam ED Vital Signs: Vital Signs - 24 hr 09/15/22 07:34 Temperature 98.1 F Pulse Rate 83 Respiratory Rate 20 Blood Pressure 148/81 H Pulse Oximetry 99 Oxygen Delivery Method Room Air BMI result Body Mass Index 29.5 Const General: cooperative, no acute distress, alert and awake Nutritional Appearance: well nourished Orientation/consciousness: patient oriented x3 Limitations: no limitations HENMT Head: Yes normal to inspection and Yes atraumatic Ears: hearing grossly normal bilaterally and external ears normal General nose exam: Normal external nose present, no nasal discharge noted and no epistaxis Face and sinus: Yes normal facial exam, No abrasion and No laceration Mouth: Normal oral and palatal mucosa present, no drooling and no muffled voice Eyes General: appearance normal, both eyes and all related structures Periorbital: periorbital findings normal Eyelids: Yes eyelids normal Conjunctivae: conjunctivae normal Pupils: Equal, round and reactive pupils present EOM: EOMs intact bilaterally Neck Neck: Yes normal visual inspection, Yes full ROM and Yes no lymphadenopathy Chest Chest palpation & inspection: normal inspection of the chest Resp Effort & Inspection: normal respiratory effort and able to speak in complete sentences Auscultation: clear to auscultation bilaterally Cardio Rate: regular rate Rhythm: regular rhythm GI Inspection: Yes normal to inspection Palpation (GI): Soft to palpation, not firm, nontender and no guarding Neuro General: patient oriented x3 and moves all extremities Cranial nerves: Yes Equal, round and reactive pupils present Cognition (Neuro): normal cognition Motor exam (neuro): 5/5 motor strength present throughout Sensory Exam: Normal double simultaneous stimulation for sensation Coordination: [id number] test normal Extrem General: Yes normal to inspection, Yes full ROM and Yes capillary refill normal Psych Appearance: grossly normal Mental Status: mental status grossly normal Affect: normal affect Attitude: cooperative Thought process: Normal thought process present Thought content: Normal thought content present Insight: Good insight present (Psych) Medications Administered Discontinued Medications Generic Name Dose Route Start Last Admin Trade Name Freq PRN Reason Stop Dose Admin Sodium Chloride 1,000 mls @ 999 mls/hr 09/15/22 08:15 09/15/22 09:15 Ns IV 09/15/22 09:15 Infused .Q1H1M JOSUÉ Infusion Ondansetron HCl 4 mg 09/15/22 08:10 09/15/22 08:20 Ondansetron Hcl 4 Mg/2 Ml Vial IVPUSH 09/15/22 08:11 4 mg ONCE ONE Administration Medical Decision Making Medical Decision Making [facility] Narrative: Patient is a 42 year old assigned male at with a history of type 1 diabetes presenting to the emergency department today with nausea and vomiting. Patient's physical exam was unremarkable. Patient's blood work showed an elevated BS of 491 but was otherwise unremarkable including a normal anion gap. Patient's urine showed no acute process. I explained my physical exam findings as well as all test results to the patient. I answered all questions asked by the patient. Patient received IV fluids and anti-emetics which he stated helped his symptoms significantly. I stressed the importance of the patient taking his medication as prescribed. I stressed the importance of the patient following up with his primary care provider. I stressed the importance of the patient returning to the emergency department immediately if his symptoms were to worsen or if he were to develop any dizziness, shortness of breath, difficulty breathing, chest pain, blurry vision, loss of vision, nausea, vomiting, abdominal pain, fever, chills, back pain, or any other complaints. Patient verbalized agreement and understanding with this treatment plan and discharge. Differential Diagnosis Differential Diagnoses: The differential diagnosis associated with the presentation includes gastroenteritis, nausea, vomiting Lab Data MDM Lab Attestation statement: I reviewed the patient's lab results. 09/15/22 08:20 09/15/22 08:20 Labs: Lab Results 09/15/22 09/15/22 09/15/22 Range/Units 07:47 08:14 08:20 WBC 5.4 (4.8-10.8) X10*3/uL RBC 4.79 (4.60-5.80) X10*6/uL Hgb 14.8 (14.0-18.0) g/dl Hct 43.5 (42.0-52.0) % MCV 90.8 (80.0-98.0) fL MCH 30.9 (27.0-33.0) pg MCHC 34.0 (31.0-36.0) g/dl RDW 12.4 (11.0-16.0) % Plt Count 266 (160-400) X10*3/uL MPV 9.0 L (9.4-12.4) fL Immature Gran % (Auto) 0.2 (0.0-0.4) % Neut % (Auto) 57.9 (45-73) % Lymph % (Auto) 26.0 (20-40) % [place] % (Auto) 9.5 (2-11) % Eos % (Auto) 6.0 H (0-4) % Baso % (Auto) 0.4 (0-2) % Lymph # (Auto) 1.4 (1.2-4.9) X10*3/uL [place] # (Auto) 0.5 (0.1-1.2) X10*3/uL Eos # (Auto) 0.3 (0.0-0.4) X10*3/uL Baso # (Auto) 0.0 (0.0-0.2) X10*3/uL Abs Immat Gran (auto) 0.01 (0.00-0.03) X10*3/uL Absolute Neuts (auto) 3.1 (2.0-8.3) x10*3/uL Absolute Nucleated RBC 0.000 (0.0-0.012) X10*3/uL Nucleated RBC % (auto) 0.0 (0.0-0.2) /100WBC VBG pH (7.32-7.43) VBG pCO2 mmHg VBG pO2 mmHg VBG HCO3 (22-26) mmol/L VBG O2 Saturation % VBG Base Excess mmol/L Sodium (135-145) mmol/L Potassium (3.3-5.1) mmol/L Chloride (96-108) mmol/L Carbon Dioxide (22-29) mmol/L Anion Gap (12-20) BUN (9-16) mg/dL Creatinine (0.5-1.4) mg/dL Estim Creat Clear Calc Estimated GFR POC Glucose 443 H* (60-115) mg/dL Random Glucose (60-115) mg/dL Calcium (8.4-10.2) mg/dL Magnesium (1.6-2.6) mg/dL Total Bilirubin (0.0-1.0) mg/dL AST (5-37) U/L ALT (0-40) U/L Alkaline Phosphatase (39-117) U/L Ammonia (13-55) umol/L Total Protein (6.5-8.0) g/dL Albumin (3.5-5.0) g/dL Urine Color Urine Appearance Urine pH (5.0-9.0) Ur Specific [place] (1.005-1.025) Urine Protein (Neg-Trace) mg/dL Urine Glucose (UA) (Negative) mg/dL Urine Ketones (Negative) mg/dL Urine Blood (Negative) Urine Nitrite (Negative) Ur Leukocyte Esterase (Negative) Urine RBC (0-2) /HPF Urine WBC (0-5) /HPF Ur Squamous Epith Cells (0-2) /HPF Urine Bacteria (None Seen) Hyaline Casts (0-2) /LPF COVID-19 (CHRISTINE) Negative (Negative) COVID-19 Clin Com See Note 09/15/22 09/15/22 09/15/22 Range/Units 08:20 08:32 08:38 WBC (4.8-10.8) X10*3/uL RBC (4.60-5.80) X10*6/uL Hgb (14.0-18.0) g/dl Hct (42.0-52.0) % MCV (80.0-98.0) fL MCH (27.0-33.0) pg MCHC (31.0-36.0) g/dl RDW (11.0-16.0) % Plt Count (160-400) X10*3/uL MPV (9.4-12.4) fL Immature Gran % (Auto) (0.0-0.4) % Neut % (Auto) (45-73) % Lymph % (Auto) (20-40) % [place] % (Auto) (2-11) % Eos % (Auto) (0-4) % Baso % (Auto) (0-2) % Lymph # (Auto) (1.2-4.9) X10*3/uL [place] # (Auto) (0.1-1.2) X10*3/uL Eos # (Auto) (0.0-0.4) X10*3/uL Baso # (Auto) (0.0-0.2) X10*3/uL Abs Immat Gran (auto) (0.00-0.03) X10*3/uL Absolute Neuts (auto) (2.0-8.3) x10*3/uL Absolute Nucleated RBC (0.0-0.012) X10*3/uL Nucleated RBC % (auto) (0.0-0.2) /100WBC VBG pH 7.29 L (7.32-7.43) VBG pCO2 47 mmHg VBG pO2 37 mmHg VBG HCO3 23 (22-26) mmol/L VBG O2 Saturation 56.0 % VBG Base Excess -3.6 mmol/L Sodium 134 L (135-145) mmol/L Potassium 4.4 (3.3-5.1) mmol/L Chloride 103 (96-108) mmol/L Carbon Dioxide 20 L (22-29) mmol/L Anion Gap 15 (12-20) BUN 12 (9-16) mg/dL Creatinine 1.23 (0.5-1.4) mg/dL Estim Creat Clear Calc 93.3 Estimated GFR > 60 POC Glucose (60-115) mg/dL Random Glucose 491 H* (60-115) mg/dL Calcium 8.4 D (8.4-10.2) mg/dL Magnesium 1.6 (1.6-2.6) mg/dL Total Bilirubin 0.5 (0.0-1.0) mg/dL AST 19 (5-37) U/L ALT 18 (0-40) U/L Alkaline Phosphatase 83 (39-117) U/L Ammonia 35 (13-55) umol/L Total Protein 5.3 L (6.5-8.0) g/dL Albumin 3.4 L (3.5-5.0) g/dL Urine Color Urine Appearance Urine pH (5.0-9.0) Ur Specific [place] (1.005-1.025) Urine Protein (Neg-Trace) mg/dL Urine Glucose (UA) (Negative) mg/dL Urine Ketones (Negative) mg/dL Urine Blood (Negative) Urine Nitrite (Negative) Ur Leukocyte Esterase (Negative) Urine RBC (0-2) /HPF Urine WBC (0-5) /HPF Ur Squamous Epith Cells (0-2) /HPF Urine Bacteria (None Seen) Hyaline Casts (0-2) /LPF COVID-19 (CHRISTINE) (Negative) COVID-19 Clin Com 09/15/22 Range/Units 09:22 WBC (4.8-10.8) X10*3/uL RBC (4.60-5.80) X10*6/uL Hgb (14.0-18.0) g/dl Hct (42.0-52.0) % MCV (80.0-98.0) fL MCH (27.0-33.0) pg MCHC (31.0-36.0) g/dl RDW (11.0-16.0) % Plt Count (160-400) X10*3/uL MPV (9.4-12.4) fL Immature Gran % (Auto) (0.0-0.4) % Neut % (Auto) (45-73) % Lymph % (Auto) (20-40) % [place] % (Auto) (2-11) % Eos % (Auto) (0-4) % Baso % (Auto) (0-2) % Lymph # (Auto) (1.2-4.9) X10*3/uL [place] # (Auto) (0.1-1.2) X10*3/uL Eos # (Auto) (0.0-0.4) X10*3/uL Baso # (Auto) (0.0-0.2) X10*3/uL Abs Immat Gran (auto) (0.00-0.03) X10*3/uL Absolute Neuts (auto) (2.0-8.3) x10*3/uL Absolute Nucleated RBC (0.0-0.012) X10*3/uL Nucleated RBC % (auto) (0.0-0.2) /100WBC VBG pH (7.32-7.43) VBG pCO2 mmHg VBG pO2 mmHg VBG HCO3 (22-26) mmol/L VBG O2 Saturation % VBG Base Excess mmol/L Sodium (135-145) mmol/L Potassium (3.3-5.1) mmol/L Chloride (96-108) mmol/L Carbon Dioxide (22-29) mmol/L Anion Gap (12-20) BUN (9-16) mg/dL Creatinine (0.5-1.4) mg/dL Estim Creat Clear Calc Estimated GFR POC Glucose (60-115) mg/dL Random Glucose (60-115) mg/dL Calcium (8.4-10.2) mg/dL Magnesium (1.6-2.6) mg/dL Total Bilirubin (0.0-1.0) mg/dL AST (5-37) U/L ALT (0-40) U/L Alkaline Phosphatase (39-117) U/L Ammonia (13-55) umol/L Total Protein (6.5-8.0) g/dL Albumin (3.5-5.0) g/dL Urine Color Yellow Urine Appearance Clear Urine pH 5.5 (5.0-9.0) Ur Specific [place] >= 1.030 H (1.005-1.025) Urine Protein Negative (Neg-Trace) mg/dL Urine Glucose (UA) >=1000 H (Negative) mg/dL Urine Ketones 15 (Negative) mg/dL Urine Blood Negative (Negative) Urine Nitrite Negative (Negative) Ur Leukocyte Esterase Negative (Negative) Urine RBC 0-2 (0-2) /HPF Urine WBC 0-5 (0-5) /HPF Ur Squamous Epith Cells 0-2 (0-2) /HPF Urine Bacteria None Seen (None Seen) Hyaline Casts 0-2 (0-2) /LPF COVID-19 (CHRISTINE) (Negative) COVID-19 Clin Com Chronic Conditions Patient?s care impacted by: Diabetes Discharge Plan Discharge Clinical Impression: Nausea & vomiting Patient Disposition: Home, Self-Care Instructions: Acute Nausea and Vomiting (ED) Additional Instructions: Take your insulin as directed. Follow up with your primary care provider. Return to the emergency department immediately if your symptoms worsen or if you develop any dizziness, shortness of breath, difficulty breathing, chest pain, blurry vision, loss of vision, nausea, vomiting, abdominal pain, fever, chills, back pain, or any other complaints. Prescriptions: New ondansetron 4 mg tablet,disintegrating 4 mg PO Q8H 3 Days Qty: 9 0RF No Action insulin lispro [Humalog KwikPen Insulin] 100 unit/mL insulin pen 10 unit subcut TID Qty: 15 1RF ondansetron 4 mg tablet,disintegrating 4 mg PO Q6H PRN (Reason: nausea and vomiting) Qty: 10 0RF oseltamivir [Tamiflu] 75 mg capsule 75 mg PO Q12H 5 Days Qty: 10 0RF acetaminophen 325 mg capsule 975 mg PO TID PRN (Reason: fever or pain) Qty: 30 0RF Lantus Solostar U-100 Insulin 100 unit/mL (3 mL) insulin pen 24 unit subcut BEDTIME lisinopril 5 mg tablet 5 mg PO DAILY (DME) blood-glucose meter Kit See Rx Instructions Not Applicable BID Qty: 1 Rx Instructions: As directed (DME) FreeStyle Lite Strips Strip See Rx Instructions .ROUTE .MEDSUPPLY Qty: 150 11RF Rx Instructions: As directed five times a day Referrals: Michael Bangura MD [Primary Care Provider] - Stand Alone Forms: Work/School Release Interventions: ED Discharge Assessment Last Done: 09/15/22 10:00 Discharge Date/Time: 09/15/22 10:00 Print Language: French
[2022-09-15] MEDS: ondansetron HCL 4 MG/2 ML VIAL IVPUSH (08:20)
[2022-09-15 08:26] LABS: MANUAL DIFF FLAG NO
[2022-09-15] MEDS: 0.9 % Sodium Chloride 1,000 ML 999 ML IV (08:26)
[2022-09-15 08:29] LABS: Basophils Percent Auto 0.4 % (0-2); Eosinophils Absolute Auto 0.3 X10*3/uL (0.0-0.4); Hematocrit 43.5 % (42.0-52.0); Hemoglobin 14.8 g/dl (14.0-18.0); Imm Gran Abs Auto 0.01 X10*3/uL (0.00-0.03); Imm Gran Pct Auto 0.2 % (0.0-0.4); Lymphocytes Absolute Auto 1.4 X10*3/uL (1.2-4.9); Mean Corpuscular Hemoglobin 30.9 pg (27.0-33.0); Mean Corpuscular Volume 90.8 fL (80.0-98.0); Monocytes Absolute Auto 0.5 X10*3/uL (0.1-1.2); Monocytes Percent Auto 9.5 % (2-11); Neutrophils Absolute Auto 3.1 x10*3/uL (2.0-8.3); Neutrophils Percent Auto 57.9 % (45-73); Platelet Count 266 X10*3/uL (160-400); Red Blood Count 4.79 X10*6/uL (4.60-5.80); Red Cell Distribution Width 12.4 % (11.0-16.0); White Blood Count 5.4 X10*3/uL (4.8-10.8)
[2022-09-15 08:33] LABS: COVID-19 Test Negative (Negative); IDNOW Serial# 6674DD1D
[2022-09-15 08:45] LABS: VBG Base Excess -3.6 mmol/L; VBG HCO3 23 mmol/L (22-26); VBG pCO2 47 mmHg; VBG pH 7.29 (7.32-7.43); VBG pO2 37 mmHg
[2022-09-15 08:47] LABS: Venous Blood Gas Refer to POC result
[2022-09-15 08:50] LABS: Alanine Aminotransferase 18 U/L (0-40); Albumin Level 3.4 g/dL (3.5-5.0); Alkaline Phosphatase 83 U/L (39-117); Anion Gap 15 (12-20); Aspartate Amino Transferase 19 U/L (5-37); Bilirubin Total 0.5 mg/dL (0.0-1.0); Blood Urea Nitrogen 12 mg/dL (9-16); Calcium 8.4 mg/dL (8.4-10.2); Carbon Dioxide 20 mmol/L (22-29); Chloride 103 mmol/L (96-108); Creatinine Clr Calc Pharmacy 93.3; Estimated Glomerular Filt Rate > 60; Glucose Random 491 mg/dL (60-115); Magnesium 1.6 mg/dL (1.6-2.6); Potassium 4.4 mmol/L (3.3-5.1); Sodium 134 mmol/L (135-145); Total Protein 5.3 g/dL (6.5-8.0)
[2022-09-15 08:56] LABS: Ammonia 35 umol/L (13-55)
[2022-09-15 09:30] LABS: Appearance Urine Clear; Color Urine Yellow; Glucose Urine UA >=1000 mg/dL (Negative); Leukocyte Esterase Urine Negative (Negative); Nitrite Urine Negative (Negative); PH 5.5 (5.0-9.0); Specific Gravity - Urine >= 1.030 (1.005-1.025); UMIC TRIGGER UACC YES; Urine Blood Negative (Negative); Urine Ketones 15 mg/dL (Negative); Urine Protein Negative (Neg-Trace)
[2022-09-15 09:36] LABS: Bacteria Urine None Seen (None Seen); Hyaline Casts Urine 0-2 /LPF (0-2); RBC Urine 0-2 /HPF (0-2); Squamous Epithelial Cell Urine 0-2 /HPF (0-2); WBC Urine 0-5 /HPF (0-5)
== END 2022-09-15 10:00 | disposition home or self-care (01) ==
PROVIDERS: Physician Assistant Medical; Emergency Provider Emergency Medicine Emergency Medical Services; PCP Internal Medicine
DX: R11.2 Nausea with vomiting, unspecified (principal); E10.9 Type 1 diabetes mellitus without complications; I10 Essential (primary) hypertension; Z79.4 Long term (current) use of insulin; Z20.822 Contact with and (suspected) exposure to COVID-19
CPT/HCPCS: 36415; 80053; 81001; 82140; 82803; 82947; 83735; 85025; 87635; 96361; 96374; 99284; 99285; J2405

== ENCOUNTER 2023-01-05 12:39 | Outpatient (REF) | payer OTHER, SELFPAY ==
--- NOTE | ~2023-01-05 | US_ITS ---
EXAMINATION: US THYROID CLINICAL INFORMATION: Thyroid nodule. COMPARISON: Ultrasound thyroid 10/10/2021. TECHNIQUE: Linear transducer grayscale and color Doppler examination with attention to the region of the thyroid. FINDINGS: SIZE: Measurements of the thyroid lobes and nodules are given in sagittal, anteroposterior and transverse dimensions respectively. Right Thyroid Lobe: 5.9 x 1.9 x 1.8 cm, volume 10.7 mL. Previously 6.0 x 1.9 x 1.9 cm, volume 11.0 mL. Parenchyma: The gland echotexture is homogeneous. Thyroid vascularity is normal. Left Thyroid Lobe: 4.9 x 1.4 x 1.5 cm, volume 5.3 mL. Previously 5.2 x 1.7 x 2.1 cm, volume 9.7 mL. Parenchyma: The gland echotexture is homogeneous. Thyroid vascularity is normal. Isthmus: 0.45 cm in maximum AP dimension. Previously 0.40 cm. Estimated total number of nodules greater than or equal to 1 cm: 1. Electrical Laboratory Technician nodules are described as follows: 1. Location: Right mid. Size: 0.7 x 0.4 x 0.7 cm, volume 0.10 mL. Previously: 0.7 x 0.5 x 0.7 cm, volume 0.10 mL. Nodule characteristics: Composition: Solid (2). Echogenicity: Hypoechoic (2). Shape: Not taller than wide (0). Margins: Smooth (0). Echogenic Foci: None (0). ACR TI-RADS total points: 4 Previous: 5 ACR TI-RADS category: 4 Previous: 4 Significant change in size (>/= 20% in 2 dimensions and minimal increase of 2 mm or 50% or greater increase in volume): No Change in features: No Change in ACR TI-RADS risk category: Yes 2. Location: Right mid/medial. Size: 0.4 x 0.2 x 0.5 cm, volume 0.02 mL. Previously: New since the previous study. Nodule characteristics: Composition: Cystic(0). ACR TI-RADS total points: 0 ACR TI-RADS category: 1 3. Location: Left isthmus. Size: 1.4 x 0.7 x 1.7 cm, volume 0.87 mL. Previously: 1.4 x 0.7 x 1.6 cm, volume 0.90 mL. Nodule characteristics: Composition: Solid/almost completely solid (2). Echogenicity: Isoechoic (1). Shape: Not taller than wide (0). Margins: Smooth (0). Echogenic Foci: None (0). ACR TI-RADS total points: 3 Previous: 3 ACR TI-RADS category: 3 Previous: 3 Significant change in size (>/= 20% in 2 dimensions and minimal increase of 2 mm or 50% or greater increase in volume): No Change in features: No Change in ACR TI-RADS risk category: No NODES: No lymphadenopathy is seen in the tissue surrounding the thyroid gland. US/US thyroid IMPRESSION: 1. Unchanged 0.7 cm right mid gland TR 4 nodule, not meeting size criteria for further evaluation. 2. Unchanged 1.7 cm TR 3 left isthmic nodule, follow-up ultrasound in 3 years is recommended for reevaluation. 3. No new suspicious thyroid nodules. ACR TI-RADS RECOMMENDATION REFERENCE: Ultrasound-guided fine-needle aspiration, follow up ultrasound, no further followup. * TR1 (0 point) and TR2 (2 points): No FNA or followup * TR3 (3 points): FNA if more than or equal to 2.5 cm in maximum dimension, follow up ultrasound in 1, 3 and 5 years if 1.5 to 2.4 cm in maximum dimension. * TR4 (4-6 points): FNA if more than or equal to 1.5 cm in maximum dimension, follow up ultrasound in 1, 2, 3 and 5 years if 1 to 1.4 cm in maximum dimension. * TR5 (more than or equal to 7 points): FNA if more than or equal to 1 cm in maximum dimension, follow up ultrasound every year for 5 years if 0.5 to 0.9 cm in maximum dimension. * TR3, TR4 or TR5 nodules that are below the size threshold for follow up receive no followup.
== END 2023-01-05 12:40 | disposition home or self-care (01) ==
LOC: HO.US 12:39
PROVIDERS: PCP Internal Medicine; Visit Provider Student in an Organized Health Care Education/Training Program
DX: E04.1 Nontoxic single thyroid nodule (principal)
CPT/HCPCS: 76536

== ENCOUNTER 2023-03-10 09:55 | Outpatient (AMB) | payer OTHER, SELFPAY ==
[2023-03-10 09:57] VITALS: BP 134/86; PULSE 59; BMI 30.5
--- NOTE | 2023-03-10 09:57 | A.OFFVIS_ITS ---
Intake Vital Signs 03/10/23 09:57 Height 6 ft Weight 224 lb 13.944 oz BMI 30.5 BP 134/86 Blood Pressure Location Lt brachial Position Sitting Pulse 59 Pulse Source Pulse Oximeter Intake Visit Reasons: DM / [place]al[place]/LVM Intake Note: Patient presents today to follow up on Type [address] Mendoza patient. Patient receives DME supplies through: Last Diabetic Eye exam: 02/2022 Last Podiatry Visit: None Random Glucose: 185mg/dl HgA1C:8.7% Instructional Technology Facilitator Required: No Accompanied by: Self / Same As Patient Allergies No Known Allergies [No Known Allergies*] Allergy (Verified 03/10/23 10:03) HPI HPI Comments History of Present Illness Details Patient is 42-year-old man with DM type 1 diagnosed in 2012, . Patient was last seen 08/13/2020 by Terri Mendoza NP.. Past medical history: Diabetes type 1, hypertension Micro and macrovascular complications: + retinopathy, + neuropathy, Diabetes medications: Lantus 24 units, Humalog 10 units prior to meals. Symptoms reported: + numbness, tingling, cramping in lower extremities Hypoglycemia: denies Hyperglycemia: denies urinary frequency, denies nocturia, denies polydypsia Blood glucose monitoring: No meter today Exercise: continues to play basketball/baseball and at work is active moving and lifting things all day. Eye Exam: last yr. Needs to schedule an appt [facility] Medical History Diabetes mellitus type 1, uncontrolled Essential hypertension Type 1 diabetes mellitus with diabetic polyneuropathy Surgical History History of ear surgery Family History Father Diabetes Mother No problems noted. Social History Household Members: Significant Other Alcohol intake: never Physical Exam Vital Signs: Last Vital Signs Pulse 59 03/10/23 09:57 BP 134/86 03/10/23 09:57 BMI result Body Mass Index 30.5 Absence of Cushingoid features. Absence of acromegalic features. Neck exam reveals nl size thyroid about 15 gms. No thyroid nodules palpable. No carotid bruits present. Lungs CTA. Heart S1 S2, Reg R/R. No M/R/ G. Skin exam reveals absence of vitiligo or acanthosis nigricans. Abdominal exam reveals Soft NT/ND with NA BS. No organomegaly present. Neck Other: . Extrem Other: Visual exam of foot performed. No ulcerations or open lesions. No onchomycosis, no callouses.Pulses 2 + distally Sensation intact to monofilament exam. Vibratory sensation sensed is intact with 128 Hz tuning fork Results AMB Hemoglobin A1c AMB Hemoglobin A1c 8.7 % Last Edit by Dulce Astudillo on 03/10/23 10:16 Results Reviewed Results Reviewed: 03/10/23 10:07 Glucose, Whole Blood Routine Laboratory Last Values Glucose (Clinic) 185 mg/dL (60-115) H 03/10/23 10:07 Assessment & Plan Assessment & Plan (1) Type 1 diabetes mellitus with diabetic polyneuropathy: Code(s): E10.42 - Type 1 diabetes mellitus with diabetic polyneuropathy Plan: This is a 42-year-old male with a history of type 1 diabetes being treated with basal-bolus insulin with poor glycemic control and known microvascular complications namely retinopathy and neuropathy.. Plan is to have the patient check his point cares pre and post meals. I will try to start the patient on sensor and I prescribed a Dexcom G7. Will send patient a assistant health educator and battery engineer. Will check lipid profile and microalbumin to creatinine ratio. Went over with patient correlation of poor glycemic control with development and progression of complications Orders: Orders Microalbumin, Random (w Creat) Today E10.42 - Type 1 diabetes mellitus with diabetic polyneuropathy Lipid Panel Today E10.42 - Type 1 diabetes mellitus with diabetic polyneuropathy AMB Hemoglobin A1c Today E10.42 - Type 1 diabetes mellitus with diabetic polyneuropathy Referrals Diabetes Education Referral E10.42 - Type 1 diabetes mellitus with diabetic polyneuropathy Nutrition/Dietitian Referral E10.42 - Type 1 diabetes mellitus with diabetic polyneuropathy Medications: New blood-glucose sensor (Dexcom G7 Sensor device) As directed change every 10 days 3 ea 5RF Coding Level of Care Code Est Pt Level 4 (77978) Diagnoses Type 1 diabetes mellitus with diabetic polyneuropathy E10.42
[2023-03-10 10:10] LABS: Glucose, Whole Blood 185 mg/dL (60-115)
== END 2023-03-10 10:31 | disposition home or self-care (01) ==
PROVIDERS: PCP Internal Medicine; Visit Provider Internal Medicine Endocrinology, Diabetes & Metabolism
DX: E10.42 Type 1 diabetes mellitus with diabetic polyneuropathy (principal)
CPT/HCPCS: 99214

== ENCOUNTER → 2023-03-10 09:55 | Outpatient (BNVA) | payer OTHER, SELFPAY | PROVIDERS: PCP Internal Medicine; Visit Provider Internal Medicine Endocrinology, Diabetes & Metabolism | DX: E10.42 Type 1 diabetes mellitus with diabetic polyneuropathy (principal); I10 Essential (primary) hypertension | CPT/HCPCS: 82947; 83036; 99212 ==

== ENCOUNTER 2023-08-20 08:18 | Outpatient (REF) | payer MEDICAID, SELFPAY ==
[2023-08-20 12:04] LABS: Creatinine Urine 186.26 mg/dL; Microalbum/Creatinine Ratio Ur 3.2 ug/mg cr (<30)
[2023-08-20 12:42] LABS: Cholesterol 134 mg/dL (<200); HDL Cholesterol 60 mg/dL (>40); LDL Cholesterol Calculated 67 mg/dL (<100); Triglycerides 35 mg/dL (<150)
== END 2023-08-20 08:19 | disposition home or self-care (01) ==
LOC: HO.HHCL 08:18
PROVIDERS: Visit Provider Internal Medicine Endocrinology, Diabetes & Metabolism
DX: E10.42 Type 1 diabetes mellitus with diabetic polyneuropathy (principal)
CPT/HCPCS: 36415; 80061; 82043; 82570

== ENCOUNTER 2023-10-22 09:00 | Outpatient (REF) | payer OTHER, SELFPAY ==
[2023-10-22 12:44] LABS: Alanine Aminotransferase 14 U/L (0-40); Albumin Level 3.7 g/dL (3.5-5.0); Alkaline Phosphatase 75 U/L (39-117); Anion Gap 11 (12-20); Aspartate Amino Transferase 14 U/L (5-37); Bilirubin Total 0.5 mg/dL (0.0-1.0); Blood Urea Nitrogen 11 mg/dL (9-16); Calcium 8.9 mg/dL (8.4-10.2); Carbon Dioxide 27 mmol/L (22-29); Chloride 109 mmol/L (96-108); Estimated Glomerular Filt Rate > 60; Potassium 4.2 mmol/L (3.3-5.1); Sodium 143 mmol/L (135-145)
[2023-10-22 13:04] LABS: Glucose Random 56 mg/dL (60-115)
== END 2023-10-22 09:01 | disposition home or self-care (01) ==
LOC: HO.HHCL 09:00
PROVIDERS: Visit Provider Student in an Organized Health Care Education/Training Program
DX: E10.40 Type 1 diabetes mellitus with diabetic neuropathy, unspecified (principal)
CPT/HCPCS: 36415; 80053

== ENCOUNTER 2023-11-11 08:23 | Outpatient (AMB) | payer MEDICAID, SELFPAY ==
[2023-11-11 08:29] VITALS: BP 140/82; PULSE 73; BMI 29.7
--- NOTE | 2023-11-11 08:29 | MHC.OFFVIS ---
Vital Signs 11/11/23 08:29 Height 6 ft Weight 219 lb 5.759 oz BMI 29.7 BP 140/82 H Blood Pressure Location Lt brachial Position Sitting Pulse 73 Pulse Source Pulse Oximeter Intake Visit Reasons: f/u Type 1 DM-confirmed Intake Note: Patient presents today to follow up on D1MT. Last Diabetic Eye exam: 09/2023 Last Podiatry Visit: Has upcoming appt in January. Random Glucose: 163 mg/dl HgA1c: 8.2% Machine Deicer Element Winder Required: Yes Machine Deicer Element Winder Language: Aircraft Manager Name: Taye Information Interpreted: non-clinical & clinical Accompanied by: Self / Same As Patient Allergies No Known Allergies [No Known Allergies*] Allergy (Verified 11/11/23 08:35) HPI Comments Details: Patient is 43-year-old man with DM type 1 diagnosed in 2012, . Past medical history: Diabetes type 1, hypertension Micro and macrovascular complications: + retinopathy, + neuropathy, Diabetes medications: Lantus 24 units, Humalog 10 units prior to meals. Symptoms reported: + numbness, tingling, cramping in lower extremities Hypoglycemia: on a wkly basis Hyperglycemia: denies urinary frequency, denies nocturia, denies polydypsia Blood glucose monitoring: Glucometer download shows he is checking his point cares once a day. Average glucose is 112 with range of 52-208. 73% range with 11% hyperglycemia and 11% hypoglycemia but they are only 9 readings in the glucometer Exercise: continues to play basketball/baseball and at work is active moving and lifting things all day. Eye Exam: last mo. [facility] Medical History Diabetes mellitus type 1, uncontrolled Essential hypertension Type 1 diabetes mellitus with diabetic polyneuropathy Surgical History History of ear surgery Family History Father Diabetes Mother No problems noted. Social History Household Members: Significant Other Alcohol intake: never Physical Exam Vital Signs: Last Vital Signs Pulse 73 11/11/23 08:29 BP 140/82 H 11/11/23 08:29 BMI result Body Mass Index 29.7 Absence of Cushingoid features. Absence of acromegalic features. Neck exam reveals nl size thyroid about 15 gms. No thyroid nodules palpable. No carotid bruits present. Lungs CTA. Heart S1 S2, Reg R/R. No M/R/ G. Skin exam reveals absence of vitiligo or acanthosis nigricans. Abdominal exam reveals Soft NT/ND with NA BS. No organomegaly present. Neck Other: . Extrem Other: Visual exam of foot performed. No ulcerations or open lesions. No onchomycosis, no callouses.Pulses 2 + distally Sensation intact to monofilament exam. Vibratory sensation sensed is intact with 128 Hz tuning fork Results AMB Hemoglobin A1c AMB Hemoglobin A1c 8.2 % Last Edit by MARIKA Calle on 11/11/23 08:50 Results Reviewed Results Reviewed: Laboratory Last Values Glucose (Clinic) 163 mg/dL (60-115) H 11/11/23 08:37 Assessment & Plan Assessment & Plan (1) Type 1 diabetes mellitus with diabetic polyneuropathy: Code(s): E10.42 - Type 1 diabetes mellitus with diabetic polyneuropathy Category: Medical Plan: This is a 42-year-old male with a history of type 1 diabetes being treated with basal-bolus insulin with poor glycemic control and known microvascular complications namely retinopathy and neuropathy.. Plan is to have the patient check his point cares pre and post meals. I will try again to start the patient on sensor and I prescribed a Dexcom G7. Will send patient a certified adaptive physical educator and general studies program chair. Went over with patient correlation of poor glycemic control with development and progression of complications Orders: Orders AMB Hemoglobin A1c Today E10.42 - Type 1 diabetes mellitus with diabetic polyneuropathy, Z13.9 - Encounter for screening, unspecified Referrals Nutrition/Dietitian Referral E10.42 - Type 1 diabetes mellitus with diabetic polyneuropathy Diabetes Education Referral E10.42 - Type 1 diabetes mellitus with diabetic polyneuropathy Medications: New glucagon 3 mg/actuation (Baqsimi) 3 mg intranasal ONCE 2 ea 5RF Refilled blood-glucose sensor (Dexcom G7 Sensor device) As directed change every 10 days 3 ea 5RF Coding Level of Care Code Est Pt Level 4 (94761) Diagnoses Type 1 diabetes mellitus with diabetic polyneuropathy E10.42
[2023-11-11 08:42] LABS: Glucose, Whole Blood 163 mg/dL (60-115)
== END 2023-11-11 08:58 | disposition home or self-care (01) ==
PROVIDERS: PCP Internal Medicine; Referring Provider Internal Medicine; Visit Provider Internal Medicine Endocrinology, Diabetes & Metabolism
DX: Z13.9 Encounter for screening, unspecified (principal); E10.42 Type 1 diabetes mellitus with diabetic polyneuropathy
CPT/HCPCS: 99214

== ENCOUNTER → 2023-11-11 08:23 | Outpatient (BNVA) | payer MEDICAID, SELFPAY | PROVIDERS: PCP Internal Medicine; Visit Provider Internal Medicine Endocrinology, Diabetes & Metabolism | DX: E10.42 Type 1 diabetes mellitus with diabetic polyneuropathy (principal) | CPT/HCPCS: 82947; 83036; 99212 ==

== ENCOUNTER 2023-11-23 15:59 | Outpatient (AMB) | payer MEDICAID, SELFPAY ==
--- NOTE | 2023-11-23 16:13 | MHC.AMDMED ---
Intake Intake Visit Reasons: T1DM Sand Caster Required: No Accompanied by: Self / Same As Patient Allergies No Known Allergies [No Known Allergies*] Allergy (Verified 11/11/23 08:35) HPI Comprehensive Diabetes Asmnt Most Recent Diabetes Results: Microalb/Creat Ratio 3.2 ug/mg cr (<30) 08/20/23 Cholesterol 134 mg/dL (<200) 08/20/23 HDL Cholesterol 60 mg/dL (>40) 08/20/23 Triglycerides 35 mg/dL (<150) 08/20/23 Creatinine 0.93 mg/dL (0.5-1.4) 10/22/23 Blood Urea Nitrogen 11 mg/dL (9-16) 10/22/23 Sodium 143 mmol/L (135-145) 10/22/23 Potassium 4.2 mmol/L (3.3-5.1) 10/22/23 Chloride 109 mmol/L (96-108) H 10/22/23 Carbon Dioxide 27 mmol/L (22-29) 10/22/23 Calcium 8.9 mg/dL (8.4-10.2) 10/22/23 AST 14 U/L (5-37) 10/22/23 ALT 14 U/L (0-40) 10/22/23 Total Protein 6.0 g/dL (6.5-8.0) L 10/22/23 Albumin 3.7 g/dL (3.5-5.0) 10/22/23 [facility] Medical History Diabetes mellitus type 1, uncontrolled Essential hypertension Type 1 diabetes mellitus with diabetic polyneuropathy Surgical History History of ear surgery Family History Father Diabetes Mother No problems noted. Social History Household Members: Significant Other Alcohol intake: never Assessment & Plan Assessment & Plan (1) Type 1 diabetes mellitus with diabetic polyneuropathy: Code(s): E10.42 - Type 1 diabetes mellitus with diabetic polyneuropathy Plan: Patient at visit to set up an insert Dexcom G7 Instructed patient sensors water proof you can shower, or swim do not submerge sensor in water for over 30 minutes Is sensor falls off cannot put back in you need to replace sensor, customer service number given to patient for sensor replacement Sensor placed on the back of left arm Patient left visit with sensor in warmup Reviewed how to interpret trend arrows Reminded patient that to check finger sticks if symptoms do not match sensor reading. Discussed lag time between finger stick and sensor data.? Instructed patient she should always keep blood glucometer for backup testing if needed Reviewed delay of CGM from fingersticks Reminded pt that if symptoms do not match sensor still needs to check fingersticks. Portions of this note were created using voice recognition software, please excuse any words or phrases that may have been misinterpreted. Patient Instructions: Patient instruction: CGM provides information on blood glucose control throughout the day, including hyperglycemia and hypoglycemia. ? Continue to monitor blood glucose as instructed. Follow nutrition guidelines provided. Report any discomfort promptly to health care provider. ?Stay well-hydrated. You can bathe ,shower, swim and exercise while wearing the glucose sensor. Do not submerge glucose sensor in water for more than 30 minutes. Coding Level of Care Code Est Pt Level 1 (34916) Diagnoses Type 1 diabetes mellitus with diabetic polyneuropathy E10.42
== END 2023-11-23 16:29 | disposition home or self-care (01) ==
PROVIDERS: PCP Internal Medicine; Visit Provider Registered Nurse Diabetes Educator
DX: E10.42 Type 1 diabetes mellitus with diabetic polyneuropathy (principal)

== ENCOUNTER → 2023-11-23 15:59 | Outpatient (BNVA) | payer MEDICAID, SELFPAY | PROVIDERS: PCP Internal Medicine; Visit Provider Registered Nurse Diabetes Educator | DX: E10.65 Type 1 diabetes mellitus with hyperglycemia (principal); E10.42 Type 1 diabetes mellitus with diabetic polyneuropathy | CPT/HCPCS: 99211 ==

== ENCOUNTER 2024-03-15 14:22 | Outpatient (AMB) | payer OTHER, SELFPAY ==
--- NOTE | 2024-03-15 08:04 | A.OFFVIS_ITS ---
Vital Signs 03/15/24 14:25 03/15/24 16:36 Height 6 ft Weight 227 lb 1.218 oz BMI 30.8 BP 146/90 H 160/90 H Blood Pressure Location Rt brachial Lt brachial Position Sitting Pulse 72 Pulse Source Pulse Oximeter Intake Visit Reasons: T1DM/LVM Intake Note: Patient presents today to re-establish treatment for Type 1 Diabetes Mellitus: Last Diabetic eye exam was on: 09/2023 Last Podiatry exam was on: Next appt on April Most recent HbA1c: 7.9%, 03/15/2024 Random Glucose- 173 mg/dL, Today Forging Press Operator Required: No Accompanied by: Self / Same As Patient Allergies No Known Allergies [No Known Allergies*] Allergy (Verified 03/15/24 14:24) HPI Comments Details: Patient is 43-year-old man with DM type 1 diagnosed in 2012 presents for f/u diabetes management. He was last seen by Dr. Stokes 11/11/2023 and at that time his A1c was 8.2% down from the previous year of 8.7%. A1c 7.9%03/15/2024. At his last visit it was recommended that he go on a Dexcom glucose sensor which he had been using. His insurance recently changed and now has prior auth to resume dexcom. Past medical history: Diabetes type 1, hypertension Micro and macrovascular complications: + retinopathy, + neuropathy, Diabetes medications: Lantus 24 units, Humalog 10 units prior to meals. Symptoms reported: + numbness, tingling, no cramping in lower extremities Hypoglycemia: twice per week treats with whatever he has with him, oj, Hyperglycemia: denies urinary frequency, denies nocturia, denies polydypsia Exercise: continues to play basketball/baseball and at work is active moving and lifting things all day. Last Eye Exam: Beginning of 2022 denies retinopathyhas f/u scheduled [facility] Medical History (Updated 03/15/24 @ 15:28 by Altagracia Arriaga NP) Hypertension Type 1 diabetes mellitus with diabetic polyneuropathy Diabetes mellitus type 1, uncontrolled Essential hypertension Surgical History History of ear surgery Family History Father Diabetes Mother No problems noted. Social History Household Members: Significant Other Alcohol intake: never Physical Exam Vital Signs: Last Vital Signs Pulse 72 03/15/24 14:25 BP 160/90 H 03/15/24 16:36 BMI result Body Mass Index 30.8 Const Other: Absence of Cushingoid features. Absence of acromegalic features. Neck exam reveals nl size thyroid about 15 gms. No thyroid nodules palpable. No carotid bruits present. Lungs CTA. Heart S1 S2, Reg R/R. No M/R G. Skin exam reveals absence of vitiligo or acanthosis nigricans. No edema Visual exam of foot performed. No ulcerations or open lesions. No inter digit maceration or fissuring. No onychomycosis, no callouses. Sensation intact to monofilament exam. Vibratory sensation is normal with 128 Hz tuning fork. Results AMB Hemoglobin A1c AMB Hemoglobin A1c 7.9 % Last Edit by MARIKA Cruz on 03/15/24 14:49 Results Reviewed Results Reviewed: Laboratory Last Values Glucose (Clinic) 173 mg/dL (60-115) H 03/15/24 14:33 Hgb A1c (Clinic) 7.9 % (4.0-6.0) H 03/15/24 14:25 Laboratory Tests 09/15/22 03/10/23 08/20/23 08:20 10:14 08:20 Plt Count 266 Potassium Creatinine Estimated GFR Random Glucose Hgb A1c (Clinic) 8.7 H Calcium AST Albumin Triglycerides 35 Cholesterol 134 LDL Cholesterol, Calc 67 HDL Cholesterol 60 Urine Creatinine Urine Microalbumin Microalb/Creat Ratio 08/20/23 10/22/23 11/11/23 08:22 09:01 08:49 Plt Count Potassium 4.2 Creatinine 0.93 Estimated GFR > 60 Random Glucose 56 L* Hgb A1c (Clinic) 8.2 H Calcium 8.9 AST 14 Albumin 3.7 Triglycerides Cholesterol LDL Cholesterol, Calc HDL Cholesterol Urine Creatinine 186.26 Urine Microalbumin 6.0 Microalb/Creat Ratio 3.2 Assessment & Plan Assessment & Plan (1) Type 1 diabetes mellitus with diabetic polyneuropathy: Code(s): E10.42 - Type 1 diabetes mellitus with diabetic polyneuropathy Category: Medical Plan: type 1 diabetic with A1C 7.9% with progressively increasing numbers throughout the day indicating lantus is not lasting 24 hours. Will change to Tresiba to smooth out numbers. This will make it easier to adjust insulin. (2) Hypertension: Code(s): I10 - Essential (primary) hypertension Category: Medical Plan: He reports he does not consume salty foods. Has been taking lisinopril 10mg which will be increased to 20 mg. He will have fasting labs in one month Orders: Orders AMB Hemoglobin A1c Today E10.42 - Type 1 diabetes mellitus with diabetic polyneuropathy Basic Metabolic Panel 4 Weeks E10.42 - Type 1 diabetes mellitus with diabetic polyneuropathy Lipid Panel 4 Weeks E10.42 - Type 1 diabetes mellitus with diabetic polyneuropathy Microalbumin, Random (w Creat) 4 Weeks E10.42 - Type 1 diabetes mellitus with diabetic polyneuropathy Creatinine Urine 4 Weeks E10.42 - Type 1 diabetes mellitus with diabetic polyneuropathy Medications: New lisinopril 20 mg PO DAILY 90 days 90 tabs 3RF E10.42 - Type 1 diabetes mellitus with diabetic polyneuropathy insulin degludec (Tresiba FlexTouch U-200 insulin) 26 units (0.13 mL) subcut DAILY 30 days 3.9 mL 6RF acetone (urine) test (Ketone Urine Test strips) glucose over 250, nausea, vomiting,, illness 25 ea 1RF Refilled blood-glucose sensor (Dexcom G7 Sensor device) As directed change every 10 days 9 ea 3RF Coding Level of Care Code Est Pt Level 4 (26959) Complex EM visit Add On G2211 Diagnoses Type 1 diabetes mellitus with diabetic polyneuropathy E10.42 Hypertension I10 Time Spent (min) 45 Comment Time spent reviewing labs/provider notes, face to face, chart doc
[2024-03-15 14:25] VITALS: BP 146/90; PULSE 72; BMI 30.8
[2024-03-15 14:39] LABS: Glucose, Whole Blood 173 mg/dL (60-115)
[2024-03-15 16:36] VITALS: BP 160/90
== END 2024-03-15 15:06 | disposition home or self-care (01) ==
PROVIDERS: PCP Internal Medicine; Visit Provider Nurse Practitioner Adult Health
DX: E10.42 Type 1 diabetes mellitus with diabetic polyneuropathy (principal); I10 Essential (primary) hypertension
CPT/HCPCS: 99214

== ENCOUNTER → 2024-03-15 14:22 | Outpatient (BNVA) | payer MEDICAID, SELFPAY | PROVIDERS: PCP Internal Medicine; Visit Provider Nurse Practitioner Adult Health | DX: E10.42 Type 1 diabetes mellitus with diabetic polyneuropathy (principal); I10 Essential (primary) hypertension | CPT/HCPCS: 82947; 83036; 99212 ==

== ENCOUNTER 2024-12-11 18:03 | Outpatient (REF) | payer OTHER, SELFPAY | END 2024-12-11 18:04 | disposition home or self-care (01) | LOC: HO.HHCLNP 18:03 | PROVIDERS: Visit Provider Student in an Organized Health Care Education/Training Program | DX: H66.90 Otitis media, unspecified, unspecified ear (principal) | CPT/HCPCS: 87070; 87077; 87186; 87205 ==